=== PATIENT | male | born 1935 | race Caucasian/White ===

== ENCOUNTER 2018-09-26 17:12 | Emergency (ER) | payer OTHER ==
[~2018-09-26] VITALS: Ht 172.7 cm; Wt 60.8 kg
[2018-09-26] MEDS ORDERED: LOSARTAN-HCTZ1 EAC1 (17:21)
[2018-09-26] MEDS ORDERED: NORVASC10 MG (17:21)
== END 2018-09-26 23:22 | disposition home or self-care (01) ==
LOC: ER 17:12
DX: R42 Dizziness and giddiness (principal); F43.21 Adjustment disorder with depressed mood

== ENCOUNTER → 2022-02-03 | Emergency (ER) | payer OTHER ==
[~2022-02-03] VITALS: Ht 172.7 cm; Wt 59.0 kg
[~2022-02-03] MED LIST: 5-HTP100 MG; LOSARTAN-HCTZ1 EAC1; NORVASC10 MG
== END | disposition home or self-care (01) ==
LOC: ER 17:41
DX: R42 Dizziness and giddiness (principal); I10 Essential (primary) hypertension